=== PATIENT | female | born 1990 | race African-American/Black ===

== ENCOUNTER 2016-05-17 18:20 | Emergency (ER) | payer MEDICAID ==
[~2016-05-17] VITALS: Ht 170.2 cm; Wt 127.0 kg
[~2016-05-17 18:20] MED LIST: AA/A14DR2; ACHD5005 PO; AMOX250C PO; AMOX500C2 PO; AMOX500T2 PO; AMOXIL; CEPH-507 PO; CETI10TA17 PO; CHOL10007 PO; CHOL378P3 PO; CIPR7.5D2 BC; CITA20TA4; CPR500T PO; CYCL10TA9 PO; DICY10CA12; DICY10CA26 PO; DIPH25TA82 PO; DOXY100C2 PO; DULO60CA6 PO; EAR DROPS OT; FAMO20TA5 PO; FERR324T4; FISH1CAP15 PO; FLUC100T PO; FLUT16SP22 NS; FRS325T PO; GICOCKTAIL; HYDR-3714 PO; HYDR-3816 PO; HYDR1CAP2 PO; HYDR1TAB PO; HYDR1TAB86 PO; HYDR50CA PO; IRON PO; METH4TAB PO; METR500T PO; NAPR-243 PO; NEOM10SO20; OMEP-10 PO; OMEP20CA12 PO; OMEP20TA7 PO; ONDA8TAB13 PO; OXYC-471 PO; PREN1TAB64 PO; PROM25SU10 RC; QUET200T PO; RAME8TAB18; RNT150T; SCR1T PO; SCR1T1 PO; SMTR50T; SUCR1TAB; SULF1TAB38 PO; TRAM-21 PO; TRAM-42 PO; TRAM50TA2; TRAM50TA2 PO; TRM50T PO; ZOLOFT
--- OUTSIDE RECORDS SUMMARY | 2016-05-17 18:24 | XMS REPORT ---
Author Author CHAVO DE LEON Organization [employer] Address Unknown Phone Unavailable Care Team Providers Care Panel Cutter Name Role Phone CHAVO DE LEON CP Unavailable Allergies No Known Allergies Problems Problem Type Condition Code Onset Dates Condition Status Problem History of uterine cancer Z85.42 Active Problem Cervicalgia M54.2 Active Problem Family history of diabetes mellitus Z83.3 Active Problem DEVYN (obstructive sleep apnea) G47.33 Active Problem Elevated liver enzymes R74.8 Active Problem Morbid obesity due to excess calories E66.01 Active Problem Other chronic pain G89.29 Active Problem Routine health maintenance Z00.00 Active Problem Elevated liver function tests R79.89 Active Problem Pain in thoracic spine M54.6 Active Problem Barretts esophagus without dysplasia K22.70 Active Problem Primary insomnia F51.01 Active Problem Right knee meniscal tear, subsequent encounter S83.206D Active Medications No Known Medications Results No Known Results Summary Purpose [employer] Submission
[2016-05-17] MEDS ORDERED: NS IV 1000 ML 1,000 ML IV ONE (18:30)
[2016-05-17] MEDS ORDERED: fentaNYL INJECTION 100 MCG/2 ML AMP IVP STA (18:30)
--- NOTE | 2016-05-17 18:39 | ED Abdominal Pain ---
General Stated Complaint: ABD PAIN Source of Information: Patient Exam Limitations: No Limitations History of Present Illness Time Seen By Provider: 18:23 Initial Comments here in transfer from [facility] in [facility] for intractable abdominal pain and elevated white count. That facility has no capability for CT scan and she was sent here for further evaluation. Patient reports that she had acute onset of right upper quadrant and epigastric abdominal pain at about 3 p.m. that caused her to black out. She states that she started sweating and passed out and ultimately was brought to the hospital. She has multiple previous evaluations for abdominal pain. She has had hysterectomy, appendectomy and cholecystectomy in the past. She has been on narcotics for chronic pain in the past and has recently as 1 month ago had a prescription filled. Patient does not report being on this currently. Timing/Duration: 1-3 Hours Severity/Quality: Moderate, Severe, Sharp Location: RUQ, Epigastric Radiation: LUQ, LLQ Activities at Onset: None Modifying Factors: Worsens With Movement, Improves With Resting Associated Symptoms: No Back Pain, No Chest Pain, No Fever/Chills, No Shortness of Air Allergies and Home Medications Allergies Coded Allergies: ibuprofen (Unverified Allergy, Intermediate, high fever and vomitting, 09/03) NSAIDS (Non-Steroidal Anti-Inflamma (Unverified Allergy, Unknown, 09/24/15) Home Medications Cetirizine HCl 10 Mg Tablet 10 MG PO DAILY (Reported) Cholecalciferol (Vitamin D3) 1,000 Unit Capsule 1,000 UNIT PO DAILY (Reported) Fish Oil/Dha/Epa 1 Each Capsule 1,200 MG PO BID (Reported) Fluticasone Propionate 16 Gm [place].susp 2 SPRAYS NS DAILY PRN PRN CONGESTION ( Reported) Omeprazole 20 Mg Capsule.dr 20 MG PO BID (Reported) Ondansetron 8 Mg Tab.rapdis #20 8 MG PO Q8H PRN PRN NAUSEA Prescribed by: RADHA LAZAR on 12/22/15 1102 Tramadol HCl 50 Mg Tablet #14 50 MG PO Q6H PRN PRN PAIN Prescribed by: LOLIS ARREOLA on 01/16/16 1414 Review of Systems Constitutional: see HPINo chills, No fever EENTM: No Symptoms Reported Respiratory: No Symptoms ReportedDenies Cough, Denies Shortness of Air Cardiovascular: Denies Chest Pain, Denies Edema Gastrointestinal: Abdominal PainDenies Diarrhea, NauseaDenies Vomiting Genitourinary: No Symptoms Reported Musculoskeletal: no symptoms reported Skin: no symptoms reported Psychiatric/Neurological: AnxietyDenies Weakness Endocrine: No Symptoms Reported All Other Systems Reviewed Negative Unless Noted: Yes Past Trbnmho-Lrmwmw-Ldzzau Hx Patient Social History Alcohol Use: Denies Use Recreational Drug Use: Yes (marijuana) Smoking Status: Current Everyday Smoker Type Used: Cigarettes Recent Hopitalizations: No Immunizations Up To Date Tetanus Booster (TDap): More than 5yrs Date of Influenza Vaccine: Oct 29, 2010 Seasonal Allergies Seasonal Allergies: Yes Surgeries HX Surgeries: Yes (EGD'S/COLONOSCOPIES; LAPAROSCOPIES; HYST/BSO; RIGHT KNEE SURGERY) Surgeries: Appendectomy, Gallbladder, 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, Oophorectomy, Orthopedic Respiratory Hx Respiratory Disorders: Yes Respiratory Disorders: Asthma, Sleep Apnea Cardiovascular Hx Cardiac Disorders: Yes Neurological Hx Neurological Disorders: No Reproductive System Hx Reproductive Disorders: Yes Sexually Transmitted Disease: No HIV/AIDS: No Female Reproductive Disorders: Menstrual Problems, 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 Genitourinary Hx Genitourinary Disorders: No Gastrointestinal Hx Gastrointestinal Disorders: Yes (S/P KIMBERLY, EGD) Gastrointestinal Disorders: Gastroesophageal Reflux, Serrato's Esophagus, Gall Bladder Disease Musculoskeletal Hx Musculoskeletal Disorders: No Endocrine Hx Endocrine Disorders: No HEENT HX ENT Disorders: No Cancer Hx Cancer: No Psychosocial Hx Psychiatric Problems: Yes Behavioral Health Disorders: ADD/ADHD, Sleep Difficulties, Anxiety, Bipolar, Depression Integumentary HX Skin/Integumentary Disorder: Yes (SHINGLES) Blood Transfusions Hx Blood Disorders: No Reviewed Nursing Assessment Reviewed/Agree w Nursing PMH: Yes Family Medical History Significant Family History: Heart Disease, Diabetes, Hypertension Family Medial History: Patient reports no known family medical history. Physical Exam Vital Signs VS - Last 72 Hours, by Label 05/17/16 18:27 Temp 98.1 Pulse 86 Resp 14 B/P 158/88 Pulse Ox 98 O2 Delivery Room Air Capillary Refill : General Appearance: WD/WN mild distress HEENT: PERRL/EOMI pharynx normal Neck: full range of motion supple Respiratory: lungs clear normal breath sounds Cardiovascular: no murmur tachycardia Gastrointestinal: soft tenderness (right upper quadrant and epigastric and to a lesser extent left lower quadrant. She appears to have more tenderness on my palpation then on her palpation.) Extremities: non-tender normal inspection Back: normal inspection no CVA tenderness no vertebral tenderness Neurologic/Psychiatric: alert oriented x 3 Skin: normal color warm/dry Focused Exam Lactic Acid Level Laboratory Tests Test 05/17/16 18:27 Lipase 22U/L (8-78) Progress/Results/Core Measures Results/Orders Lab Results Laboratory Tests Test 05/17/16 18:27 Range/Units Lipase 22 8-78 U/L My Orders Orders-JEREMI MCDERMOTT MD Ct Abdomen/Pelvis W (05/17/16 18:30) Fentanyl Injection (Sublimaze Injection (05/17/16 18:30) Saline Lock/Iv-Start (05/17/16 18:30) Ns Iv 1000 Ml (Sodium Chloride 0.9%) (05/17/16 18:30) Lipase (05/17/16 18:30) Iohexol Injection (Omnipaque 350 Mg/Ml 1 (05/17/16 18:45) Ns (Ivpb) (Sodium Chloride 0.9% Ivpb Bag (05/17/16 18:45) Medications Given in ED Current Medications Medications Dose Ordered Sig/Pato Route Start Time Stop Time Status Last Admin Dose Admin Sodium Chloride 1,000 ml @ 0 mls/hr Q0M ONCE IV 05/17/16 18:30 05/17/16 18:33 DC 05/17/16 18:42 0 MLS/HR Vital Signs/I&O Vital Sign - Last 12Hours 05/17/16 18:27 Temp 98.1 Pulse 86 Resp 14 B/P 158/88 Pulse Ox 98 O2 Delivery Room Air Progress Note : Progress Note seen and evaluated on arrival by EMS. I did review the labs from outside facility which would only indicate mild elevation of white count not other significant abnormalities. We will check lipase and give liter of fluid. Due to severity of pain and unfortunately I believe that we'll have to do CT abdomen and pelvis. This was discussed with the patient who verbalize understanding. Normal saline 1 L bolus. Fentanyl 50 g IV for severe pain. 2000: CT shows no acute findings. Lipase is negative as well. Patient is receiving IV fluid. I did discuss findings with the patient. She has multiple visits for similar type pain syndrome. No acute findings have been noted. She does need follow-up with a surgeon and I will give her information on surgeon to follow-up with. She has not had a scope in a few years reportedly. She does not want to wait for completion of fluids here and would like to just go home. Discharged home with return precautions. Patient verbalize understanding instructions and agreement with plan. Diagnostic Imaging Diagonstic Imaging: CT Plain Films/CT/US/NM/MRI: abdomen, pelvis Comments VIA [facility] [place], [place] NAME: CHARLY BRYAN [facility] REC#: [id number] PT STATUS: REG ER : 1990 PHYSICIAN: JEREMI MCDERMOTT MD ADMIT DATE: 05/17/16/ER Draft Date of Exam:05/17/16 CT ABDOMEN/PELVIS W PROCEDURE: CT abdomen and pelvis with contrast. TECHNIQUE: Multiple contiguous axial images were obtained through the abdomen and pelvis after administration of intravenous contrast. INDICATION: Abdominal pain with nausea and vomiting. COMPARISON: 01/16/2016. FINDINGS: The lung bases are clear. No focal hepatic lesion is seen. The portal vein appears patent. The gallbladder is absent. The pancreas, spleen, and adrenal glands appear unremarkable. The kidneys, ureters, and bladder appear unremarkable as visualized. The uterus appears absent. The appendix may be absent. No inflammatory change, free fluid, or free air is seen. A few prominent mesenteric lymph nodes are similar to the prior study. There is no evidence of bowel obstruction. The abdominal aorta appears normal in caliber. No acute osseous abnormality is suspected. IMPRESSION: 1. No acute abnormality is seen in the abdomen and pelvis. Status post cholecystectomy and hysterectomy as well as probable appendectomy. No acute inflammatory process is seen. 2. There are a few prominent but nonenlarged lymph nodes in the mesentery of the abdomen, which are similar to the prior CT from December of 2015. These are nonspecific. Dictated on workstation # [id number] Dict: 05/17/16 1908 Trans: 05/17/16 [id number] Interpreted by: FORD CARPENTER DO Electronically signed by: Departure Impression Impression: Primary Impression: Upper abdominal pain Disposition: 01 HOME, SELF-CARE Condition: Stable Departure-Patient Inst. Decision time for Depature: 20:04 Referrals: [facility] (PCP/Family) Primary Care Physician VALERY OCONNOR MD Patient Instructions: Acute Abdomen (Belly Pain), Adult (DC) Add. Discharge Instructions: Continue home medications as directed. Clear liquid diet for 24 hours and then advance as tolerated. It is important that he follow up with your doctor and with a surgeon for further evaluation including upper endoscopy (scope). You may take Tylenol 1000 mg every 8 hours as needed for pain. You may add pepcid or the generic fomotadine, 20 mg once daily as needed for stomach upset as well. JEREMI MCDERMOTT MD May 17, 2016 18:39
[2016-05-17] MEDS ORDERED: NS 100 ML (IVPB) BAG IV ONE (18:45)
[2016-05-17] MEDS ORDERED: IOHEXOL 350 MG/ML 100 ML (OMNIPAQUE 350) VIAL IV ONE (18:45)
--- NOTE | 2016-05-17 19:16 | Diagnostic Imaging Report ---
PROCEDURE: CT abdomen and pelvis with contrast. TECHNIQUE: Multiple contiguous axial images were obtained through the abdomen and pelvis after administration of intravenous contrast. INDICATION: Abdominal pain with nausea and vomiting. COMPARISON: 01/16/2016. FINDINGS: The lung bases are clear. No focal hepatic lesion is seen. The portal vein appears patent. The gallbladder is absent. The pancreas, spleen, and adrenal glands appear unremarkable. The kidneys, ureters, and bladder appear unremarkable as visualized. The uterus appears absent. The appendix may be absent. No inflammatory change, free fluid, or free air is seen. A few prominent mesenteric lymph nodes are similar to the prior study. There is no evidence of bowel obstruction. The abdominal aorta appears normal in caliber. No acute osseous abnormality is suspected. IMPRESSION: 1. No acute abnormality is seen in the abdomen and pelvis. Status post cholecystectomy and hysterectomy as well as probable appendectomy. No acute inflammatory process is seen. 2. There are a few prominent but nonenlarged lymph nodes in the mesentery of the abdomen, which are similar to the prior CT from December of 2015. These are nonspecific. Dictated by: Dictated on workstation # [id number]
[2016-05-17 20:33] VITALS: BP 130/85
== END 2016-05-17 20:33 | disposition home or self-care (01) ==
LOC: EDUNIT# 18:20 → ER 18:21
DX: R10.11 Right upper quadrant pain (principal); R10.13 Epigastric pain; F17.210 Nicotine dependence, cigarettes, uncomplicated; Z90.49 Acquired absence of other specified parts of digestive tract; Z90.710 Acquired absence of both cervix and uterus
CPT/HCPCS: 36415; 74177; 83690; 96361; 96374

== ENCOUNTER 2016-06-03 05:49 | Outpatient (CLI) | payer MEDICAID ==
[~2016-06-03] VITALS: Ht 180.3 cm; Wt 127.1 kg
== END 2016-06-03 16:22 ==
LOC: PREOP 05:49
PROVIDERS: ATTEND Surgery
DX: Z01.818 Encounter for other preprocedural examination (principal); R10.13 Epigastric pain

== ENCOUNTER 2016-06-07 08:47 | Day surgery (SDC) | payer MEDICAID ==
[~2016-06-07] VITALS: Ht 180.3 cm; Wt 127.1 kg
[2016-06-07] MEDS ORDERED: NS IV 500 ML 500 ML IV PRN (08:55)
[2016-06-07] MEDS ORDERED: FLUMAZENIL (ROMAZICON) 0.1 MG/ML 5 ML VIAL INJ PRN (09:00)
[2016-06-07] MEDS ORDERED: NALOXONE 0.4 MG/ML 1 ML (NARCAN) VIAL IVP PRN (09:00)
[2016-06-07] MEDS ORDERED: fentaNYL INJECTION 100 MCG/2 ML AMP IVP PRN (09:00)
[2016-06-07] MEDS ORDERED: HURRICAINE EXT TUBE (BENZOCAINE) XX PRN (09:00)
[2016-06-07 09:16] VITALS: BP 119/76
--- NOTE | 2016-06-07 10:05 | Conscious Sedation/ASA ---
Conscious Sedation Pre-Proced ASA Class: 2 Airway Mallampati Classification: ([place] appropriate class) I. II. III, IV Lungs Heart ASA score ASA 1: a normal healthy patient ASA 2: a patient with a mild systemic disease (mid diabetes, controlled hypertension, obesity ASA 3: a patient with a severe systemic disease that limits activity (angina , COPD, prior Myocardial infarction) ASA 4: a patient with an incapacitating disease that is a constant threat to life (CHF, renal failure) ASA 5: a moribund patient not expected to survive 24 hrs. (ruptured aneurysm) ASA 6: a declared brain patient whose organs are being harvested. For emergent operations, add the letter E after the classification Grade 2 Sedation Plan: Discussed options with patient/fam Note The patient is an appropriate candidate to undergo the planned procedure, sedation, and anesthesia. The patient immediately re-assessed prior to indication. VALERY OCONNOR MD Jun 07, 2016 10:05 am
[2016-06-07] MEDS ORDERED: MIDAZOLAM 2 MG/2 ML (VERSED) VIAL ONE ×5 (10:06→10:14)
[2016-06-07] MEDS ORDERED: fentaNYL INJECTION 100 MCG/2 ML AMP ONE (10:06)
[2016-06-07] MEDS ORDERED: HURRICAINE EXT TUBE (BENZOCAINE) ONE (10:06)
[2016-06-07] MEDS: MIDAZOLAM 2 MG/2 ML (VERSED) VIAL IVP PRN ×5 (10:15→10:24)
--- NOTE | 2016-06-07 10:42 | Endoscopy Procedure Report ---
Endoscopy Report Date: Jun 07, 2016 Preoperative Diagnosis: epigastric pain Study Performed: Upper Endoscopy Procedure Instrument: Endoscope Endo Procedure/Findings Findings Procedure/Findings grade 3 esophagitis Copy Copies To 1: JAZMIN CASTELLANOS XAVIER M MD Jun 07, 2016 10:42 am
--- NOTE | 2016-06-07 10:44 | Discharge Inst-Simple/Standard ---
Discharge Inst-Standard Discharge Medications New, Converted or Re-Newed RX: Other Patient Instructions/Follow Up Plan of Care/Instructions/FU: follow-up with her primary Activity as Tolerated: Yes Discharge Diet: No Restrictions VALERY OCONNOR MD Jun 07, 2016 10:44 am
[2016-06-07 11:00] VITALS: BP 130/76
[2016-06-07 11:25] VITALS: BP 122/76
[2016-06-07 11:30] VITALS: BP 122/76
--- NOTE | 2016-06-07 12:27 | PROCEDURE REPORT ---
PROCEDURE PHYSICIAN: VALERY OCONNOR DATE OF PROCEDURE: 06/07/2016 PROCEDURE: Upper GI endoscopy with antral biopsy. SURGEON: Dr. Oconnor. INDICATION FOR THE PROCEDURE: The young lady came in for an upper endoscopy to evaluate ongoing epigastric pain. Informed consent was obtained after reviewing the procedure in detail. DESCRIPTION OF PROCEDURE: She was placed in left lateral decubitus position and her vital signs were monitored. Conscious sedation was achieved using Versed and fentanyl. The flexible gastroscope was then introduced down the esophagus, past the stomach, into the proximal duodenum. FINDINGS: ESOPHAGUS: Grade 3 esophagitis with linear ulcers along the distal esophagus. STOMACH: Normal. DUODENUM: Normal. Due to her symptoms, an antral biopsy was obtained for Helicobacter status. She tolerated the procedure well and was taken back to the nursing area in a stable condition. IMPRESSION: 1. Epigastric pain. 2. Grade 3 esophagitis. 3. Helicobacter status pending. Job ID: [id number] Dictated Date: 06/07/2016 10:40:37 Cover Stripper Date: 06/07/2016 12:24:42 / avelina DONIS
== END 2016-06-07 11:30 | disposition home or self-care (01) ==
LOC: ENDO 08:47
PROVIDERS: ATTEND Surgery
DX: K21.9 Gastro-esophageal reflux disease without esophagitis (principal)
CPT/HCPCS: 88305

== ENCOUNTER 2016-10-25 15:34 | Emergency (ER) | payer MEDICAID ==
[~2016-10-25] VITALS: Ht 177.8 cm; Wt 113.4 kg
--- OUTSIDE RECORDS SUMMARY | 2016-10-25 15:43 | XMS REPORT ---
Author Author DE LEONCHAVO Arellano Organization [facility] Address [address] [place] [address] Care Team Providers Care Torpedo Man Name Role Phone DE LEONSHARON ArellanoELE Unavailable PROBLEMS Type Condition ICD9-CM Code [id number] Code Onset Dates Condition Status SNOMED Code Problem Routine health maintenance Z00.00 Active 084112984 Problem Pain in thoracic spine M54.6 Active [id number] Problem Other chronic pain G89.29 Active 69160234 Problem Depression with anxiety F41.8 Active 857436817 Problem Seasonal allergic rhinitis due to pollen J30.1 Active 68002680 Problem Elevated liver enzymes R74.8 Active 911989453 Problem Elevated liver function tests R79.89 Active 938090336 Problem Morbid obesity due to excess calories E66.01 Active 911713207 Problem DEVYN (obstructive sleep apnea) G47.33 Active 20313796 Problem Right knee meniscal tear, subsequent encounter S83.206D Active 266913723 Problem History of uterine cancer Z85.42 Active 536924317 Problem Barretts esophagus without dysplasia K22.70 Active 491080981 Problem Family history of diabetes mellitus Z83.3 Active 245049107 Problem Primary insomnia F51.01 Active 3642355 Problem Cervicalgia M54.2 Active 96794575 ALLERGIES Substance Reaction Event Type Date Status NSAIDS Unknown Non Drug Allergy Jan, Active SOCIAL HISTORY No smoking Hx information available PLAN OF CARE Activity Details Follow Up 4 Weeks Reason:weight management VITAL SIGNS Height 71 in 2016-02-20 Weight 301 lbs 2016-02-20 Temperature 98 degrees Fahrenheit 2016-02-20 Heart Rate 90 bpm 2016-02-20 Respiratory Rate 20 2016-02-20 BMI 41.98 kg/m2 2016-02-20 Blood pressure systolic 140 mmHg 2016-02-20 Blood pressure diastolic 88 mmHg 2016-02-20 MEDICATIONS Medication Instructions Dosage Frequency Start Date End Date Duration Status Cholecalciferol 88907 UNIT Orally once weekly for 8 weeks 1 capsule Jul, Active Fish Oil 1000 MG Orally twice a day 1 capsule 12h Jul, 30 day(s ) Active Fluticasone Propionate 50 MCG/ACT Nasally Once a day 1 spray in each nostril 24h Sep, Active Omeprazole 20 mg Orally twice a day 1 capsules 12h Jul, Active Contrave 8-90 MG Orally Twice a day 2 tablets 12h Dec, Feb, 30 day(s) Active Zofran ODT 8 MG Orally every 8 hrs as needed 1 tablet 10 days Active Cetirizine HCl 10 mg Orally Once a day 1 tablet 24h Sep, Active RESULTS No Results PROCEDURES Procedure Date Ordered Related Diagnosis Body Site Office Visit, Est Pt., Level 3 Feb 20, 2016 IMMUNIZATIONS No Known Immunizations
[2016-10-25] MEDS ORDERED: LIDOCAINE 2% 20 ML (XYLOCAINE) VIAL ONE (16:12)
[2016-10-25] MEDS ORDERED: HYDROcodone/APAP 5 MG/325 MG (LORTAB) TAB ONE (16:12)
--- NOTE | 2016-10-25 16:20 | ED Integumentary General ---
General Stated Complaint: ABCESS ON BUTTOCK Source: patient Exam Limitations: no limitations History of Present Illness Time seen by provider: 16:18 Initial Comments To ER with an abscess to the right side of the buttocks for the past 3 days. No fevers or chills. She has a history of these. No drainage. Timing/Duration: just prior to arrival Severity: moderate Associated Symptoms: denies symptoms Allergies and Home Medications Allergies Coded Allergies: ibuprofen (Verified Allergy, Intermediate, high fever and vomitting, ) NSAIDS (Non-Steroidal Anti-Inflamma (Verified Allergy, Unknown, 06/07/16) Home Medications Cetirizine HCl 10 Mg Tablet, 10 MG PO DAILY, (Reported) Cholecalciferol (Vitamin D3) 1,000 Unit Capsule, 1,000 UNIT PO DAILY, (Reported) Fish Oil/Dha/Epa 1 Each Capsule, 1,200 MG PO BID, (Reported) Fluticasone Propionate 16 Gm [place].susp, 2 SPRAYS NS DAILY PRN for CONGESTION, ( Reported) Omeprazole 20 Mg Capsule.dr, 20 MG PO BID, (Reported) Ondansetron 8 Mg Tab.rapdis, 8 MG PO Q8H PRN for NAUSEA, #20 Ref 0 Prescribed by: RADHA LAZAR on 12/22/15 1102 Constitutional: see HPI EENTM: see HPI Respiratory: no symptoms reported Cardiovascular: no symptoms reported Genitourinary: no symptoms reported Musculoskeletal: no symptoms reported Skin: see HPI Psychiatric/Neurological: No Symptoms Reported Past Aupotgs-Irqrfo-Rxczfh Hx Patient Social History Drug of Choice: THC Type Used: Cigarettes Recent Foreign Travel: No Contact w/Someone Who Travel: No Recent Hopitalizations: No Immunizations Up To Date Tetanus Booster (TDap): More than 5yrs Date of Influenza Vaccine: Oct 29, 2010 Seasonal Allergies Seasonal Allergies: Yes Surgeries Surgeries: Appendectomy, Gallbladder, 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, Oophorectomy, Orthopedic Respiratory Respiratory Disorders: Asthma, Sleep Apnea Currently Using CPAP: Yes Reproductive System Hx Reproductive Disorders: No Sexually Transmitted Disease: No HIV/AIDS: No Female Reproductive Disorders: Menstrual Problems, 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 Physical Exam Vital Signs Capillary Refill : General Appearance: WD/WN, no apparent distress HEENT: PERRL/EOMI, normal ENT inspection Neck: non-tender, full range of motion Respiratory: normal breath sounds, no respiratory distress, no accessory muscle use Gastrointestinal: normal bowel sounds, non tender, soft Extremities: normal range of motion, non-tender Neurologic/Psychiatric: alert, normal mood/affect, oriented x 3 Skin: normal color, warm/dry, other (4 cm circular area of erythema to the right side of the buttock. There is no pustule noted. There is about 1-2 cm of induration within the center of this erythema.) Skin Problem Character: abscess, erythema I&D : Blade Size: 11 I & D Procedure: betadine prep (O) Progress Anesthetized with 2 L 12 percent lidocaine without epinephrine. Stab incision with an 11 blade scalpel. Minimal amount of purulent material expressed. Culture collected and sent to lab. Progress/Results/Core Measures Results/Orders My Orders Orders - JOSEPH HARO APRN Wound Culture (10/25/16 16:17) Hydrocodone/Apap 5/325 Tablet (Lortab 5 (10/25/16 16:30) Lidocaine 2% Injection 20 Ml (Xylocaine (10/25/16 16:30) Hydrocodone/Apap 5/325 Tablet (Lortab 5 (10/25/16 16:12) Lidocaine 2% Injection 20 Ml (Xylocaine (10/25/16 16:12) Departure Impression Impression: Primary Impression: Abscess Disposition: 01 HOME, SELF-CARE Condition: Stable Departure-Patient Inst. Decision time for Depature: 16:20 Referrals: [facility] (PCP/Family) Primary Care Physician Patient Instructions: Abscess Incision and Drainage Add. Discharge Instructions: 1. Return to ER for any concerns 2. Follow-up with your doctor next week 3. Warm compresses to this area. Antibiotics and pain medication as directed Scripts Hydrocodone/Acetaminophen (Carrier 5-325 Tablet) 1 Each Tablet 1 EACH PO Q6H Y for PAIN-MODERATE, #10 TAB Do not fill unless Bactrim is also filled. Prov: JOSEPH HARO APRN 10/25/16 Sulfamethoxazole/Trimethoprim (Bactrim Ds Tablet) 1 Each Tablet 1 EACH PO BID, #14 TAB Prov: JOSEPH HARO APRN 10/25/16 JOSEPH HARO APRN Oct 25, 2016 16:20
[2016-10-25] MEDS ORDERED: LIDOCAINE 2% 20 ML (XYLOCAINE) VIAL INJ ONE (16:30)
[2016-10-25] MEDS ORDERED: HYDROcodone/APAP 5 MG/325 MG (LORTAB) TAB PO ONE (16:30)
[2016-10-25] MEDS ORDERED: SULF1TAB35 PO (16:31)
[2016-10-25] MEDS ORDERED: HYDR-757 PO (16:31)
[2016-10-25 16:35] VITALS: BP 120/69
== END 2016-10-25 16:35 | disposition home or self-care (01) ==
LOC: EDUNIT# 15:34 → ER 15:36
DX: L02.31 Cutaneous abscess of buttock (principal); J45.909 Unspecified asthma, uncomplicated; G47.30 Sleep apnea, unspecified; K21.9 Gastro-esophageal reflux disease without esophagitis; F90.9 Attention-deficit hyperactivity disorder, unspecified type; F41.9 Anxiety disorder, unspecified; F31.9 Bipolar disorder, unspecified; Z82.49 Family history of ischemic heart disease and other diseases of the circulatory system; Z87.19 Personal history of other diseases of the digestive system; Z90.710 Acquired absence of both cervix and uterus
CPT/HCPCS: 87070; 87077; 87186; 87205

== ENCOUNTER 2016-11-08 13:46 | Outpatient (RCR) | payer MEDICAID ==
[~2016-11-08 13:46] MED LIST changes: +HYDR-757 PO; +SULF1TAB35 PO
== END 2016-11-27 | disposition home or self-care (01) ==
PROVIDERS: ATTEND Nurse Practitioner
DX: X58.XXXA Exposure to other specified factors, initial encounter; S83.271A Complex tear of lateral meniscus, current injury, right knee, initial encounter; S83.272A Complex tear of lateral meniscus, current injury, left knee, initial encounter; Y99.8 Other external cause status

== ENCOUNTER 2016-12-19 11:27 | Emergency (ER) | payer MEDICAID ==
[~2016-12-19] VITALS: Ht 177.8 cm; Wt 122.5 kg
--- OUTSIDE RECORDS SUMMARY | 2016-12-19 11:32 | XMS REPORT ---
Author Author MOISESCHAVO Organization [facility] Address [address] [place] [address] Care Team Providers Care Lard Renderer Name Role Phone DE LEONSHARON ArellanoELE Unavailable PROBLEMS Type Condition ICD9-CM Code DEU10-NR Code Onset Dates Condition Status SNOMED Code Problem History of uterine cancer Z85.42 Active 391423306 Problem Pain in thoracic spine M54.6 Active 686100464362903 Problem Elevated liver function tests R79.89 Active 223683656 Problem Depression with anxiety F41.8 Active 345130194 Problem Seasonal allergic rhinitis due to pollen J30.1 Active 04671309 Problem Elevated liver enzymes R74.8 Active 999118012 Problem Other chronic pain G89.29 Active 09218471 Problem DEVYN (obstructive sleep apnea) G47.33 Active 12717129 Problem Morbid obesity due to excess calories E66.01 Active 171192448 Problem Cervicalgia M54.2 Active 43188245 Problem Family history of diabetes mellitus Z83.3 Active 322235877 Problem Barretts esophagus without dysplasia K22.70 Active 492786133 Problem Right knee meniscal tear, subsequent encounter S83.206D Active 303612622 Problem Primary insomnia F51.01 Active 3895335 Problem Routine health maintenance Z00.00 Active 681571242 ALLERGIES Substance Reaction Event Type Date Status NSAIDS Unknown Non Drug Allergy Mar, Active SOCIAL HISTORY Never Assessed PLAN OF CARE Activity Details Follow Up 4 Weeks Reason:knee pain VITAL SIGNS Height 71 in 2016-04-15 Weight 301.5 lbs 2016-04-15 Temperature 97.4 degrees Fahrenheit 2016-04-15 Heart Rate 92 bpm 2016-04-15 Respiratory Rate 20 2016-04-15 BMI 42.05 kg/m2 2016-04-15 Blood pressure systolic 124 mmHg 2016-04-15 Blood pressure diastolic 78 mmHg 2016-04-15 MEDICATIONS Medication Instructions Dosage Frequency Start Date End Date Duration Status Hydrocodone-Acetaminophen 5-325 MG Orally every 8 hrs 1 tablet as needed 8h Feb, Apr, 14 days Active Contrave 8-90 MG Orally Twice a day 2 tablets 12h 30 day(s) Active Cetirizine HCl 10 mg Orally Once a day 1 tablet 24h Sep, Active Omeprazole 20 mg Orally twice a day 1 capsules 12h 07 Jul, 2015 90 days Active Zofran ODT 8 MG Orally every 8 hrs as needed 1 tablet 10 days Active Fluticasone Propionate 50 MCG/ACT Nasally Once a day 1 spray in each nostril 24h Sep, Active Fish Oil 1000 MG Orally twice a day 1 capsule 12h Jul, 30 day(s ) Active Cholecalciferol 56051 UNIT Orally once weekly for 8 weeks 1 capsule Jul, Active RESULTS No Results PROCEDURES No Known procedures IMMUNIZATIONS No Known Immunizations MEDICAL (GENERAL) HISTORY Type Description Date Medical History Asthma Medical History history of uterine cancer Medical History Serrato's Esophagus Medical History Neck/back injury from cheerleading Medical History H Pylori infection Surgical History appendectomy Surgical History Cholecystectomy Surgical History Total 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 Surgical History EGD- Surgical History Colonoscopy Surgical History history of H pylori infection Surgical History right knee arthroscopy 07/2015 Hospitalization History past surgery Hospitalization History Intractable N/V, Abd pain, elevated liver enzymes-- [facility] 12/22/2015
--- OUTSIDE RECORDS SUMMARY | 2016-12-19 11:32 | XMS REPORT ---
Author Author MOISESCHAVO Organization [facility] Address [address] [place] [address] Care Team Providers Care Machine Sewer Name Role Phone DE LEONCHAVO Arellano Unavailable PROBLEMS Type Condition ICD9-CM Code BJA00-DU Code Onset Dates Condition Status SNOMED Code Problem History of uterine cancer Z85.42 Active 729620234 Problem Pain in thoracic spine M54.6 Active 729021077683204 Problem Elevated liver function tests R79.89 Active 018078795 Problem Depression with anxiety F41.8 Active 932310861 Problem Seasonal allergic rhinitis due to pollen J30.1 Active 32061837 Problem Elevated liver enzymes R74.8 Active 309707893 Problem Other chronic pain G89.29 Active 32242890 Problem DEVYN (obstructive sleep apnea) G47.33 Active 39690754 Problem Morbid obesity due to excess calories E66.01 Active 879293074 Problem Cervicalgia M54.2 Active 29191853 Problem Family history of diabetes mellitus Z83.3 Active 921755893 Problem Barretts esophagus without dysplasia K22.70 Active 567389891 Problem Right knee meniscal tear, subsequent encounter S83.206D Active 478002445 Problem Primary insomnia F51.01 Active 9636308 Problem Routine health maintenance Z00.00 Active 632151035 ALLERGIES Unknown Allergies SOCIAL HISTORY No smoking Hx information available PLAN OF CARE VITAL SIGNS MEDICATIONS Unknown Medications RESULTS No Results PROCEDURES No Known procedures IMMUNIZATIONS No Known Immunizations
--- OUTSIDE RECORDS SUMMARY | 2016-12-19 11:33 | XMS REPORT ---
Author Author MOISES CHAVO Organization [facility] Address [address] [place] [address] Care Team Providers Care Rheostat Assembler Name Role Phone DE LEONSHARON ArellanoELE Unavailable PROBLEMS Type Condition ICD9-CM Code GXF67-KS Code Onset Dates Condition Status SNOMED Code Problem History of uterine cancer Z85.42 Active 114944407 Problem Pain in thoracic spine M54.6 Active 124761331308557 Problem Elevated liver function tests R79.89 Active 883482790 Problem Depression with anxiety F41.8 Active 136577521 Problem Seasonal allergic rhinitis due to pollen J30.1 Active 35483323 Problem Elevated liver enzymes R74.8 Active 061596173 Problem Other chronic pain G89.29 Active 56885155 Problem DEVYN (obstructive sleep apnea) G47.33 Active 00990506 Problem Morbid obesity due to excess calories E66.01 Active 645840866 Problem Cervicalgia M54.2 Active 96803011 Problem Family history of diabetes mellitus Z83.3 Active 753904139 Problem Barretts esophagus without dysplasia K22.70 Active 383149493 Problem Right knee meniscal tear, subsequent encounter S83.206D Active 901115985 Problem Primary insomnia F51.01 Active 2385770 Problem Routine health maintenance Z00.00 Active 666852720 ALLERGIES Substance Reaction Event Type Date Status NSAIDS Unknown Non Drug Allergy Feb, Active SOCIAL HISTORY No smoking Hx information available PLAN OF CARE Activity Details Follow Up 4 Weeks Reason:weight management VITAL SIGNS Height 71 in 2016-03-18 Weight 301.2 lbs 2016-03-18 Temperature 97.6 degrees Fahrenheit 2016-03-18 Heart Rate 90 bpm 2016-03-18 Respiratory Rate 18 2016-03-18 BMI 42.00 kg/m2 2016-03-18 Blood pressure systolic 118 mmHg 2016-03-18 Blood pressure diastolic 76 mmHg 2016-03-18 MEDICATIONS Medication Instructions Dosage Frequency Start Date End Date Duration Status Zofran ODT 8 MG Orally every 8 hrs as needed 1 tablet 10 days Active Fluticasone Propionate 50 MCG/ACT Nasally Once a day 1 spray in each nostril 24h Sep, Active Cetirizine HCl 10 mg Orally Once a day 1 tablet 24h Sep, Active Contrave 8-90 MG Orally Twice a day 2 tablets 12h 30 day(s) Active Fish Oil 1000 MG Orally twice a day 1 capsule 12h Jul, 30 day(s ) Active Cholecalciferol 26257 UNIT Orally once weekly for 8 weeks 1 capsule Jul, Active Hydrocodone-Acetaminophen 5-325 MG Orally every 6 hrs 1 tablet as needed 6h Feb, Feb, 10 days Active Omeprazole 20 mg Orally twice a day 1 capsules 12h Jul, 90 days Active RESULTS No Results PROCEDURES Procedure Date Ordered Related Diagnosis Body Site Office Visit, Est Pt., Level 4 Mar 18, 2016 IMMUNIZATIONS No Known Immunizations
--- OUTSIDE RECORDS SUMMARY | 2016-12-19 11:35 | XMS REPORT ---
Author Author MOISESCHAVO Organization [facility] Address [address] [place] [address] Care Team Providers Care Coning Machine Operator Name Role Phone DE LEONCHAVO Arellano Unavailable PROBLEMS Type Condition ICD9-CM Code CWE50-HQ Code Onset Dates Condition Status SNOMED Code Problem History of uterine cancer Z85.42 Active 025786500 Problem Pain in thoracic spine M54.6 Active 965975618605566 Problem Elevated liver function tests R79.89 Active 869768805 Problem Depression with anxiety F41.8 Active 151628098 Problem Seasonal allergic rhinitis due to pollen J30.1 Active 37261512 Problem Elevated liver enzymes R74.8 Active 712889521 Problem Other chronic pain G89.29 Active 76881597 Problem DEVYN (obstructive sleep apnea) G47.33 Active 73465882 Problem Morbid obesity due to excess calories E66.01 Active 165521663 Problem Cervicalgia M54.2 Active 18600539 Problem Family history of diabetes mellitus Z83.3 Active 720287693 Problem Barretts esophagus without dysplasia K22.70 Active 657053387 Problem Right knee meniscal tear, subsequent encounter S83.206D Active 707494147 Problem Primary insomnia F51.01 Active 0672255 Problem Routine health maintenance Z00.00 Active 048089248 ALLERGIES Unknown Allergies SOCIAL HISTORY No smoking Hx information available PLAN OF CARE VITAL SIGNS MEDICATIONS Unknown Medications RESULTS No Results PROCEDURES No Known procedures IMMUNIZATIONS No Known Immunizations
[2016-12-19] MEDS ORDERED: HYDR-757 PO (12:09)
[2016-12-19] MEDS ORDERED: SULF1TAB35 PO (12:09)
--- NOTE | 2016-12-19 12:09 | ED Integumentary General ---
General Chief Complaint: Skin/Wound Problems Stated Complaint: L BREAST ABSCESS Source: patient Exam Limitations: no limitations History of Present Illness Time seen by provider: 12:06 Initial Comments To ER with a left breast abscess present for 3 days. She reports fevers and chills. She also reports nausea. She was seen at [facility] last night and states she was prescribed Keflex. She has a history of multiple abscesses but states that she's never had one on her breast before Timing/Duration: constant Severity: moderate Associated Symptoms: fever Allergies and Home Medications Allergies Coded Allergies: ibuprofen (Verified Allergy, Intermediate, high fever and vomitting, ) NSAIDS (Non-Steroidal Anti-Inflamma (Verified Allergy, Unknown, 06/07/16) Home Medications Cetirizine HCl 10 Mg Tablet, 10 MG PO DAILY, (Reported) Cholecalciferol (Vitamin D3) 1,000 Unit Capsule, 1,000 UNIT PO DAILY, (Reported) Fish Oil/Dha/Epa 1 Each Capsule, 1,200 MG PO BID, (Reported) Fluticasone Propionate 16 Gm [place].susp, 2 SPRAYS NS DAILY PRN for CONGESTION, ( Reported) Hydrocodone/Acetaminophen 1 Each Tablet, 1 EACH PO Q6H PRN for PAIN-MODERATE, # 10 Do not fill unless Bactrim is also filled. Prescribed by: JOSEPH HARO on 10/25/16 1631 Omeprazole 20 Mg Capsule.dr, 20 MG PO BID, (Reported) Ondansetron 8 Mg Tab.rapdis, 8 MG PO Q8H PRN for NAUSEA, #20 Ref 0 Prescribed by: RADHA LAZAR on 12/22/15 1102 Sulfamethoxazole/Trimethoprim 1 Each Tablet, 1 EACH PO BID, #14 Prescribed by: JOSEPH HARO on 10/25/16 1631 Constitutional: see HPI, chills, fever EENTM: see HPI Respiratory: no symptoms reported Cardiovascular: no symptoms reported Genitourinary: no symptoms reported Musculoskeletal: no symptoms reported Skin: see HPI Psychiatric/Neurological: No Symptoms Reported Past Gykgtqt-Qcthfb-Udxoex Hx Patient Social History Alcohol Use: Denies Use Recreational Drug Use: No Drug of Choice: THC Type Used: Cigarettes Recent Foreign Travel: No Contact w/Someone Who Travel: No Recent Hopitalizations: No Physical Abuse: No Sexual Abuse: No Mistreated: No Immunizations Up To Date Tetanus Booster (TDap): More than 5yrs Date of Influenza Vaccine: Oct 29, 2010 Seasonal Allergies Seasonal Allergies: Yes Surgeries History of Surgeries: Yes (EGD'S/COLONOSCOPIES; LAPAROSCOPIES; HYST/BSO; RIGHT KNEE SURGERY) Surgeries: Appendectomy, Gallbladder, 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, Oophorectomy, Orthopedic Respiratory History of Respiratory Disorde: Yes Respiratory Disorders: Asthma, Sleep Apnea Currently Using CPAP: Yes Cardiovascular History of Cardiac Disorders: No Neurological History of Neurological Disord: No Reproductive System Hx Reproductive Disorders: No Sexually Transmitted Disease: No HIV/AIDS: No Female Reproductive Disorders: Menstrual Problems, Endometriosis COVER SEAMER History: 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 Genitourinary History of Genitourinary Disor: No Gastrointestinal History of Gastrointestinal Di: Yes Gastrointestinal Disorders: Gastroesophageal Reflux, Serrato's Esophagus, Gall Bladder Disease Musculoskeletal History of Musculoskeletal Dis: No Endocrine History of Endocrine Disorders: No HEENT Hearing Impairment: Denies Cancer History of Cancer: No Psychosocial History of Psychiatric Problem: Yes Behavioral Health Disorders: ADD/ADHD, Sleep Difficulties, Anxiety, Bipolar, Depression Suicide Risk Score: 0 Integumentary History of Skin or Integumenta: No Blood Transfusions History of Blood Disorders: No Family Medical History Significant Family History: Heart Disease, Diabetes, Hypertension Family Medial History: Patient reports no known family medical history. Physical Exam Vital Signs Capillary Refill : General Appearance: WD/WN, no apparent distress HEENT: PERRL/EOMI, normal ENT inspection Neck: non-tender, full range of motion Cardiovascular: regular rate, rhythm, no murmur Respiratory: normal breath sounds, no respiratory distress, no accessory muscle use Gastrointestinal: normal bowel sounds, non tender, soft Neurologic/Psychiatric: alert, normal mood/affect, oriented x 3 Skin: normal color, warm/dry, other (4 cm area of erythema to the lateral aspect of the left breast. In the center of this is a 1 cm area of induration without fluctuance. No drainage. No pustule.) Skin Problem Character: abscess Progress/Results/Core Measures Results/Orders My Orders Orders - JOSEPH HARO APRN Cbc With Automated Diff (12/19/16 12:03) Saline Lock/Iv-Start (12/19/16 12:03) Hydrocodone/Apap 5/325 Tablet (Lortab 5 (12/19/16 12:15) Clindamycin 900 Mg Iv (1x Dose (12/19/16 12:15) Departure Impression Impression: Primary Impression: Abscess Disposition: 01 HOME, SELF-CARE Condition: Stable Departure-Patient Inst. Decision time for Depature: 12:07 Referrals: [facility] (PCP/Family) Primary Care Physician Patient Instructions: Skin Abscess Add. Discharge Instructions: 1. Warm compresses to this area several times per day 2. Return to ER for any worsening symptoms. Take the antibiotics as directed Follow-up with your doctor this week for recheck. All discharge instructions reviewed with patient and/or family. Voiced understanding. Scripts Hydrocodone/Acetaminophen ([place] 5-325 Tablet) 1 Each Tablet 1 EACH PO Q4H Y for PAIN-MODERATE TO SEVERE, #10 TAB Do not fill unless Bactrim is also filled Prov: JOSEPH HARO APRN 12/19/16 Sulfamethoxazole/Trimethoprim (Bactrim Ds Tablet) 1 Each Tablet 1 EACH PO BID, #14 TAB Prov: JOSEPH HARO APRN 12/19/16 JOSEPH HARO APRN Dec 19, 2016 12:09
[2016-12-19 12:15] LABS: BASOPHILS % (AUTO) 0 % (0-10); EOSINOPHILS % (AUTO) 1 % (0-10); LYMPHOCYTES # (AUTO) 2.7 X 10^3 (1.0-4.0); LYMPHOCYTES % (AUTO) 23 % (12-44); MEAN CORPUSCULAR HEMOGLOBIN 27 PG (25-34); MEAN CORPUSCULAR HGB CONC 33 G/DL (32-36); MEAN CORPUSCULAR VOLUME 80 FL (80-99); MEAN PLATELET VOLUME 10.3 FL (7.4-10.4); MONOCYTES # (AUTO) 0.8 X 10^3 (0.0-1.0); MONOCYTES % (AUTO) 7 % (0-12); NEUTROPHILS # (AUTO) 8.3 X 10^3 (1.8-7.8); NEUTROPHILS % (AUTO) 69 % (42-75); PLATELET COUNT 253 10^3/uL (130-400); RED BLOOD COUNT 5.16 10^6/uL (4.35-5.85); RED CELL DISTRIBUTION WIDTH 14.6 % (10.0-14.5)
[2016-12-19] MEDS ORDERED: HYDROcodone/APAP 5 MG/325 MG (LORTAB) TAB PO ONE (12:15)
[2016-12-19] MEDS ORDERED: CLINDAMYCIN INJECTION 900 MG in NS (IVPB) 50 ML IV ONE (12:15)
[2016-12-19 12:16] LABS: BASOPHILS # (AUTO) 0.1 10^3/uL (0.0-0.1); EOSINOPHILS # (AUTO) 0.1 10^3/uL (0.0-0.3)
[2016-12-19] MEDS ORDERED: ONDANSETRON 4 MG/2 ML (SDV) Z0FRAN IVP ONE (13:00)
[2016-12-19 13:03] VITALS: BP 135/90
== END 2016-12-19 13:02 | disposition home or self-care (01) ==
LOC: EDUNIT# 11:27 → ER 11:28
DX: N61.1 Abscess of the breast and nipple (principal); J45.909 Unspecified asthma, uncomplicated; G47.30 Sleep apnea, unspecified; K21.9 Gastro-esophageal reflux disease without esophagitis; F31.9 Bipolar disorder, unspecified; F41.9 Anxiety disorder, unspecified; F90.9 Attention-deficit hyperactivity disorder, unspecified type; Z82.49 Family history of ischemic heart disease and other diseases of the circulatory system; Z90.49 Acquired absence of other specified parts of digestive tract; Z90.710 Acquired absence of both cervix and uterus
CPT/HCPCS: 36415; 85025; 96365; 96375

== ENCOUNTER → 2021-04-22 | Outpatient (CLI) | payer MEDICAID ==
[~2021-04-22] MED LIST changes: +HYDR-34 PO; -HYDR-3816 PO; +HYDR-4226 PO; -HYDR-757 PO; -OMEP20CA12 PO; +OMEP20CA18 PO; -OXYC-471 PO; +OXYC1TAB11 PO; -SULF1TAB35 PO
--- NOTE | 2021-04-22 16:28 | Diagnostic Imaging Report ---
PROCEDURE: MRI lumbar spine. TECHNIQUE: Multiplanar, multisequence MRI of the lumbar spine was performed without contrast. INDICATION: Chronic lower back pain. COMPARISON: None. FINDINGS: For the purposes of this exam, last well-formed disc space is noted at the L5-S1 level. Small rudimentary disc is present at S1-S2. Static alignment is maintained. There is no significant anterolistheses or retrolisthesis. There is no evidence of jumped facets. Vertebral body heights are preserved. There is no acute fracture. Evaluation of the marrow signal demonstrates subtle MODIC type I change involving the adjacent endplates at the L5-S1 level. Intervertebral disc heights are fairly well maintained, although there is loss of normal T2 bright signal at L5-S1. Visualized portions of the distal cord are unremarkable. Conus terminates at approximately the L1-L2 level. No abnormal intrathecal filling defects are seen. Prevertebral and paravertebral soft tissue structures are unremarkable. Axial images demonstrate the following: T12-L1 through L4-L5: There is no large disc bulge or focal protrusion. There is no significant spinal canal or neuroforaminal stenosis. L5-S1: There is broad-based posterior disc bulge, slightly eccentric to the right. There is also mild bilateral facet arthropathy. There is however no significant spinal canal or neuroforaminal stenosis. IMPRESSION: 1. Early degenerative changes at L5-S1, but no significant spinal canal or neuroforaminal stenosis throughout. 2. No acute fracture or dislocation. Dictated by: Dictated on workstation # [id number]
== END ==
LOC: RAD 14:45
PROVIDERS: ATTEND Nurse Practitioner Family
DX: M47.817 Spondylosis without myelopathy or radiculopathy, lumbosacral region (principal)
CPT/HCPCS: 72148

== ENCOUNTER 2022-08-22 13:12 | Emergency (ER) | payer MEDICAID ==
[~2022-08-22] VITALS: Ht 180 cm; Wt 113.0 kg
[~2022-08-22 13:12] MED LIST changes: +OMEP20TA56 PO; -OMEP20TA7 PO
--- NOTE | 2022-08-22 14:07 | ED Back Pain ---
General Chief Complaint: Back Problems Stated Complaint: BACK PAIN Nursing Triage Note: PT AMB TO TRIAGE. PT CO OF LOW BACK PAIN ACROSS BACK RATES 11/07. PT CO OF NUMBNESS IN HANDS AND LEGS AT THIS X. DENIES INJURY Source of Information: Patient Exam Limitations: No Limitations History of Present Illness Date Seen by Provider: Aug 22, 2022 Time Seen by Provider: 13:55 Initial Comments 31-year-old female presents to the ER with complaints of lower back pain for the last few days. Patient reports she has chronic lower back pain, recently flared up again. She reports numbness in her entire legs as well as her hands. Denies numbness or tingling in her groin area. Denies any known injury. Denies bowel or bladder incontinence. Patient is able to walk. Denies fevers. She was seen at the [facility] walk-in in [place] and prescribed muscle relaxer, steroid, and lidocaine patches. States that these medications are not helping and that is why she is here. Allergies and Home Medications Allergies Coded Allergies: ibuprofen (Verified Allergy, Intermediate, high fever and vomitting, 06/07/16) NSAIDS (Non-Steroidal Anti-Inflamma (Verified Allergy, Unknown, 06/07/16) Patient Home Medication List Home Medication List Reviewed: Yes Cetirizine HCl (Cetirizine HCl) 10 Mg Tablet, 10 MG PO DAILY, (Reported) Entered as Reported by: AMBROSE JEROME on 12/22/15 1035 Cholecalciferol (Vitamin D3) (Vitamin D3) 1,000 Unit Capsule, 1,000 UNIT PO JACOBO LY, (Reported) Entered as Reported by: AMBROSE JEROME on 12/22/15 1035 Fish Oil/Dha/Epa (Fish Oil 1,200 mg Fish Oil) 1 Each Capsule, 1,200 MG PO BID, (Reported) Entered as Reported by: NICHOLAS MENDOZA on 08/22/15 1842 Fluticasone Propionate (Fluticasone Propionate) 16 Gm [place].susp, 2 SPRAYS NS DAILY PRN for CONGESTION, (Reported) Entered as Reported by: AMBROSE JEROME on 12/22/15 1035 Hydrocodone/Acetaminophen (Hydrocodone/Acetaminophen 5 MG/325 MG TAB) 1 Each Tablet, 1 EACH PO Q6H PRN for PAIN-MODERATE Prescribed by: JOSEPH HARO on 10/25/16 1631 Hydrocodone/Acetaminophen (Hydrocodone/Acetaminophen 5 MG/325 MG TAB) 1 Each Tablet, 1 EACH PO Q4H PRN for PAIN-MODERATE TO SEVERE Prescribed by: JOSEPH HARO on 12/19/16 1209 Omeprazole (Omeprazole) 20 Mg Capsule.dr, 20 MG PO BID, (Reported) Entered as Reported by: SURAJ PERRY on 09/24/15 2148 Ondansetron (Ondansetron Odt) 8 Mg Tab.rapdis, 8 MG PO Q8H PRN for NAUSEA Prescribed by: RADHA LAZAR on 12/22/15 1102 Sulfamethoxazole/Trimethoprim (Bactrim Ds Tablet) 1 Each Tablet, 1 EACH PO BID Prescribed by: JOSEPH HARO on 10/25/16 1631 Sulfamethoxazole/Trimethoprim (Bactrim Ds Tablet) 1 Each Tablet, 1 EACH PO BID Prescribed by: JOSEPH HARO on 12/19/16 1209 Review of Systems Constitutional: see HPI Past Wbflckt-Nnkict-Ttdfbp Hx Patient Social History Tobacco Use?: Yes Tobacco type used: Cigarettes Smoking Status: Current Everyday Smoker Substance use?: No Alcohol Use?: No Pt feels they are or have been: No Immunizations Up To Date Tetanus Booster (TDap): More than 5yrs Seasonal Allergies Seasonal Allergies: Yes Past Medical History Surgery/Hospitalization HX: HYST, ARTHROSCOPY R KNEE, GB APPY Surgeries: Yes (EGD'S/COLONOSCOPIES; LAPAROSCOPIES; HYST/BSO; RIGHT KNEE SURGERY) Appendectomy, Gallbladder, 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, Oophorectomy, Orthopedic Respiratory: Yes Asthma, Sleep Apnea Currently Using CPAP: Yes Cardiac: No Neurological: No Reproductive Disorders: No Female Reproductive Disorders: Menstrual Problems, Endometriosis 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 Heart Disease, Diabetes, Hypertension Physical Exam Vital Signs Vital Signs - First Documented 08/22/22 08/22/22 13:40 15:00 Temp 36.5 Pulse 81 Resp 18 B/P (MAP) 138/75 (96) Pulse Ox 96 O2 Delivery Room Air Capillary Refill : Less Than 3 Seconds Height, Weight, BMI Height: 5'10.00" Weight: 270lbs. 4.0oz. 122.058254yc; 34.00 BMI Method:Stated General Appearance: WD/WN, Moderate Distress Neck: Non Tender, Supple Cardiovascular: Regular Rate, Rhythm Respiratory: Lungs Clear, Normal Breath Sounds, No Accessory Muscle Use, No Respiratory Distress Back: Vertebral Tenderness (Lumbar spine), Other (Muscle tenderness bilateral lower back) Extremity: Normal Inspection, Normal Range of Motion Neurologic/Psychiatric: Alert, Normal Mood/Affect Skin: Normal Color, Warm/Dry Progress/Results/Core Measures Results/Orders My Orders Orders - JACQUELYN HERCULES APRN Ketorolac Injection (Toradol Injection) (08/22/22 14:15) Orphenadrine Inj (Ed Only) (Norflex Inje (08/22/22 14:15) Medications Given in ED Current Medications Medications Dose Ordered Sig/Pato Route Start Time Stop Time Status Last Admin Dose Admin Ketorolac Tromethamine 30 mg ONCE ONCE IM 08/22/22 14:15 08/22/22 14:16 DC 08/22/22 14:18 30 MG Orphenadrine Citrate 60 mg ONCE ONCE IM 08/22/22 14:15 08/22/22 14:16 DC 08/22/22 14:18 60 MG Vital Signs/I&O 08/22/22 08/22/22 13:40 15:00 Temp 36.5 Pulse 81 80 Resp 18 16 B/P (MAP) 138/75 (96) 138/72 Pulse Ox 96 96 O2 Delivery Room Air Blood Pressure Mean: 96 Progress Progress Note : Progress Note Patient seen and evaluated, sitting on edge of bed, moderate distress. Based on exam and symptoms, I am not concerned for cauda equina syndrome. Patient has history of chronic back pain, has had a lumbar MRI in the past, this flare has been going on for a few days. She states she has numbness and tingling in her entire legs, denies any numbness or tingling in her groin area, has no bowel or bladder incontinence, she is able to walk. Will treat with a shot of Toradol, patient's allergy to NSAIDs is vomiting. Will also give a shot of Norflex. Patient's pain has improved, resting comfortably in bed. Patient already has prescription for muscle relaxers, steroid, and lidocaine patches. Discharge instructions and return precautions provided. Departure Impression Primary Impression: Lumbar back pain with radiculopathy affecting lower extremity Disposition: 01 HOME, SELF-CARE Condition: Stable Departure-Patient Inst. Decision time for Depature: 14:40 Referrals: [facility] (PCP/Family) Primary Care Physician Patient Instructions: Low back pain in adults Add. Discharge Instructions: Continue taking your muscle relaxer and steroid as prescribed. Continue using the lidocaine patches as prescribed. You may try heat or ice, whichever feels better. You may also take 1000 mg of Tylenol every 8 hours as needed for pain. Follow-up with your primary care provider. Physical therapy might also be an option to help your chronic back pain. Return if you have difficulty or are unable to walk, you lose control of your bowel or bladder, you develop a fever, or any other new, concerning, or worsening symptoms. All discharge instructions reviewed with patient and/or family. Voiced under standing. JACQUELYN HERCULES PRINTING SPECIALIST Aug 22, 2022 14:07
[2022-08-22] MEDS ORDERED: ORPHENADRINE 60 MG/2 ML (NORFLEX) AMP (ED ONLY) IM ONE (14:15)
[2022-08-22] MEDS ORDERED: KETOROLAC 30 MG/ML VIAL IM ONE (14:15)
[2022-08-22 15:00] VITALS: BP 138/72
== END 2022-08-22 15:00 | disposition home or self-care (01) ==
LOC: EDUNIT# 13:12 → ER 13:14
DX: M54.16 Radiculopathy, lumbar region (principal); G47.30 Sleep apnea, unspecified; F17.210 Nicotine dependence, cigarettes, uncomplicated; Z88.6 Allergy status to analgesic agent; Z99.89 Dependence on other enabling machines and devices
CPT/HCPCS: 99284